=== PATIENT | female | born 1965 | race African-American/Black ===

== ENCOUNTER 2017-01-08 08:31 | Emergency (ER) | payer OTHER ==
[~2017-01-08] VITALS: Ht 154.9 cm; Wt 73.9 kg
--- NOTE | ~2017-01-08 | CR63 ---
[facility] A Service of [facility] & [facility] RADIOLOGY TEXT RESULTS PATIENT: JEFFY DIALLO LOCATION: [facility] : 65 UNIT #: [id number] AGE: [address]: Glenys Kowalski SEX: F ORDER DR: [id number] [facility] [address] [place], [place] [address] [id number] E MR#: [id number] #: [id number] NAME: JEFYF DIALLO : 1965 SEX: F STUDY DATE/TIME: 01/08/2017 10:54 UNIT: [facility] ROOM: STUDY DESCRIPTION: CR Chest 2 View Attending Physician: Glenys Kowalski P.A.-C. Ordering Physician: Glenys Kowalski P.A.-C. Primary Care Physician: No Primary Care Physician MEDICAL IMAGING REPORT This report is preliminary unless electronic signature is present EXAM Two-view chest. HISTORY Chest pain, low back pain x1 day. No known injury. FINDINGS Two views of the chest demonstrates moderate lung volumes, satisfactory technique. No definite infiltrates or effusions. There may be a small amount of left basilar atelectasis. Heart size within normal limits. The aorta is mildly tortuous and prominent suggesting ectasia and possible atherosclerotic change. No invasive tubes or lines. No new pneumothorax. IMPRESSION Mild thoracic aortic ectasia, probably on the basis of atherosclerotic disease. No acute findings. Dictated by... Brent Leonard M.D. THIS IS AN ELECTRONICALLY VERIFIED REPORT Brent Leonard M.D. at 01/08/2017 5:02 PM Marine TD: 01/08/2017 15:06 JOB #: [id number] MEDICAL IMAGING REPORT Page 1 of 1 COPY
--- NOTE | ~2017-01-08 | CT71 ---
[facility] A Service of [facility] & [facility] RADIOLOGY TEXT RESULTS PATIENT: JEFFY DIALLO LOCATION: [facility] : 65 UNIT #: [id number] AGE: [address]: Glenys Kowalski SEX: F ORDER DR: [id number] [facility] [address] [place], [place] [address] [id number] E MR#: [id number] Acc #: [id number] NAME: JEFFY DIALLO : 1965 SEX: F STUDY DATE/TIME: 01/08/2017 9:50 UNIT: [facility] ROOM: STUDY DESCRIPTION: CT Head Wo Contrast Attending Physician: Glenys Kowalski P.A.-C. Ordering Physician: Glenys Kowalski P.A.-C. Primary Care Physician: No Primary Care Physician MEDICAL IMAGING REPORT This report is preliminary unless electronic signature is present EXAM CT head without contrast, 01/08/2017. COMPARISON None HISTORY Chest pain, back pain when she bends over, since yesterday. Headaches. TECHNIQUE CT of the head was obtained without contrast in the axial plane, as per the protocol. This CT exam was performed with one or more of the following radiation dose reduction techniques: automatic exposure control, adjustment of mA and/or kV according to patient size, and iterative reconstruction. FINDINGS Ventricular size and configuration are normal. There is no evidence of acute infarct or hemorrhage. There are no extra-axial fluid collections. No mass lesion or mass effect is seen. There are no skull fractures. IMPRESSION Normal noncontrast head CT. Dictated by... Tete Erickson M.D. THIS IS AN ELECTRONICALLY VERIFIED REPORT Tete Erickson M.D. at 01/12/2017 11:36 AM CPR/ed [facility] A Service of [facility] & [facility] RADIOLOGY TEXT RESULTS PATIENT: JEFFY DIALLO LOCATION: [facility] : 65 UNIT #: [id number] AGE: [address]: Glenys Kowalski SEX: F ORDER DR: TD: 01/08/2017 14:17 JOB #: [id number] MEDICAL IMAGING REPORT Page 1 of 1 COPY
--- NOTE | ~2017-01-08 | EKG ---
PATIENT: JEFFY DIALLO UNIT #: [id number] Ventricular Rate: 68 BPM Atrial Rate: 68 BPM P-R Interval: 162 ms QRS Duration: 76 ms Q-T Interval: 390 ms QTC Calculation(Bezet): 414 ms P [place]: 27 degrees Calculated T [place]: 1 degrees Diagnosis Line: Normal sinus rhythm Diagnosis Line: Minimal voltage criteria for LVH, may be normal Diagnosis Line: variant Diagnosis Line: Cannot rule out Inferior infarct , age Diagnosis Line: undetermined Diagnosis Line: Borderline ECG Diagnosis Line: No previous ECGs available Diagnosis Line: Confirmed by DOTTIE DRISCOLL MD ([id number]) on 01/08/2017 Diagnosis Line: 5:01:56 PM INTERPRETING MD: AMERICO CHAN
--- NOTE | ~2017-01-08 | CR181 ---
[facility] A Service of [facility] & [facility] RADIOLOGY TEXT RESULTS PATIENT: JEFFY DIALLO LOCATION: [facility] : 65 UNIT #: [id number] AGE: [address]: Glenys Kowalski SEX: F ORDER DR: [id number] [facility] [address] [place], [place] [address] [id number] E MR#: [id number] Acc #: [id number] NAME: JEFFY DIALLO : 1965 SEX: F STUDY DATE/TIME: 01/08/2017 11:01 UNIT: [facility] ROOM: STUDY DESCRIPTION: CR Lumbar Spine 2 or 3 Views Attending Physician: Glenys Kowalski P.A.-C. Ordering Physician: Glenys Kowalski P.A.-C. Primary Care Physician: No Primary Care Physician MEDICAL IMAGING REPORT This report is preliminary unless electronic signature is present EXAM Lumbar spine, 3 views. HISTORY Low back pain x1 day, no known injury. FINDINGS AP and lateral projections of the lumbar segment show good mineralization of both anterior and posterior elements. They are all anatomically normal without indication of fracture, dislocation, or malignant change of a sclerotic or lytic type. There is no congenital defect noted. The sacroiliac joints are normal. IMPRESSION Normal lumbar spine. Dictated by... Brent Leonard M.D. THIS IS AN ELECTRONICALLY VERIFIED REPORT Brent Leonard M.D. at 01/08/2017 5:02 PM Marine TD: 01/08/2017 15:12 JOB #: [id number] MEDICAL IMAGING REPORT Page 1 of 1 COPY
[2017-01-08 09:56] LABS: POC - CKMB <1.0 ng/mL (0.0-7.9); POC - TROPONIN <0.05 ng/mL (<=0.05)
[2017-01-08 10:16] LABS: BASOPHIL% 0.5 % (0-2.5); EOSINOPHIL# 0.1 X10e3 (0-0.7); EOSINOPHIL% 1.7 % (0.0-7.0); HEMATOCRIT 36.5 % (35.0-45.0); LYMPHOCYTE# 1.5 X10e3 (1.0-3.5); LYMPHOCYTE% 23.2 % (17.0-45.0); MEAN CELL VOLUME 82.1 FL (83-96); MEAN CORPUSCULAR HGB CONC 32.9 g/dL (30-36); MEAN PLATELET VOLUME 8.6 FL (6.5-11.5); MONOCYTE# 0.5 X10e3 (0-1.0); NEUTROPHIL# 4.2 X10e3 (1.5-7.1); NEUTROPHIL% 66.6 % (40-75); PLATELET COUNT 268 X10e3 (140-420); RED BLOOD COUNT 4.45 X10e (3.90-5.30); RED CELL DISTRIBUTION WIDTH 15.1 % (11.0-15.5); WHITE BLOOD COUNT 6.4 X10e3 (4.0-10.5)
[2017-01-08 10:18] LABS: DIFF IND NO
[2017-01-08 10:46] LABS: CALCIUM SERUM 8.9 mg/dL (8.4-10.2); CREATININE SERUM 0.7 mg/dL (0.6-1.4); GLOM FILT RATE Estimated 116.3 mL/min (>60); POTASSIUM 3.7 mmol/L (3.5-5.1)
[2017-01-08 12:37] LABS: POC - CKMB <1.0 ng/mL (0.0-7.9); POC - TROPONIN <0.05 ng/mL (<=0.05)
[2017-01-08 12:42] LABS: POC - CKMB <1.0 ng/mL (0.0-7.9); POC - TROPONIN <0.05 ng/mL (<=0.05)
== END 2017-01-08 12:36 | disposition home or self-care (01) ==
LOC: CED 08:31
PROVIDERS: Physician Assistant
DX: S33.5XXA Sprain of ligaments of lumbar spine, initial encounter (principal); S23.41XA Sprain of ribs, initial encounter; V43.62XA Car passenger injured in collision with other type car in traffic accident, initial encounter
CPT/HCPCS: 36415; 70450; 71020; 72100; 80048; 82553; 84484; 85025; 93005; 96372; 96374; 99285; J1885